=== PATIENT | female | born 1990 | race Caucasian/White ===

== ENCOUNTER 2017-09-27 11:40 | Emergency (ER) | payer MEDICAID, OTHER ==
[~2017-09-27] VITALS: Ht 170.2 cm; Wt 80.0 kg
[~2017-09-27 11:40] MED LIST: IBUP800 PO; PRENTAB72 PO
[2017-09-27 12:00] VITALS: BP_SYST 125; BP_SYST 13; BP_DIAS 63; PULSE 119; RESP 18; TEMP 98.7; O2SAT 99
[2017-09-27 13:09] LABS: AUTOMATED NEUTROPHIL # 10.9 TH/MM3 (1.8-7.7); BASOPHIL % 0.3 % (0.0-2.0); EOSINOPHIL # 0.3 TH/MM3 (0-0.4); EOSINOPHIL % 2.2 % (0.0-4.0); HEMATOCRIT 39.4 % (35.0-46.0); HEMOGLOBIN 13.1 GM/DL (11.6-15.3); LYMPH % 13.7 % (9.0-44.0); LYMPHOCYTE # 1.9 TH/MM3 (1.0-4.8); MEAN CELL VOLUME 79.6 FL (80.0-100.0); MEAN CORPUSCULAR HEMOGLOBIN 26.5 PG (27.0-34.0); MEAN CORPUSCULAR HGB CONC 33.3 % (32.0-36.0); MEAN PLATELET VOLUME 7.8 FL (7.0-11.0); MONO % 5.6 % (0.0-8.0); MONOCYTE # 0.8 TH/MM3 (0-0.9); NEUT % 78.2 % (16.0-70.0); PLATELET COUNT 256 TH/MM3 (150-450); RED BLOOD COUNT 4.95 MIL/MM3 (4.00-5.30); RED CELL DISTRIBUTION WIDTH 15.4 % (11.6-17.2); WHITE BLOOD COUNT 13.9 TH/MM3 (4.0-11.0)
[2017-09-27 13:19] LABS: INTERNATIONAL NORMALIZED RATIO 1.1 RATIO; PROTHROMBIN TIME - PATIENT 10.9 SEC (9.8-11.6)
[2017-09-27 13:32] LABS: ALBUMIN 3.8 GM/DL (3.4-5.0); ALT (GPT) 11 U/L (10-53); AST (GOT) 11 U/L (15-37); BICARBONATE 24.4 MEQ/L (21.0-32.0); BLOOD UREA NITROGEN 13 MG/DL (7-18); CALCIUM 9.4 MG/DL (8.5-10.1); CHLORIDE 104 MEQ/L (98-107); CREATININE 0.66 MG/DL (0.50-1.00); GLOMERULAR FILTRATION RATE 107 ML/MIN (>89); GLUCOSE,RANDOM 85 MG/DL (74-106); SODIUM (NA) 138 MEQ/L (136-145)
[2017-09-27 13:48] LABS: ALKALINE PHOSPHATASE 62 U/L (45-117); TOTAL BILIRUBIN ADULT 0.7 MG/DL (0.2-1.0); TOTAL PROTEIN 8.1 GM/DL (6.4-8.2)
--- NOTE | 2017-09-27 14:08 | PD ---
HPI Chief Complaint: Related Problem Time Seen by Provider: 14:00 Travel History International Travel<30 days: No Contact w/Intl Traveler<30days: No Traveled to known affect area: No History of Present Illness HPI 26-year-old female presumably 5-1/2 weeks , presents emergency department with sudden onset heavy vaginal bleeding and cramping. Patient states it started today around lunchtime. She states it went through her pants and 2 pads in the last 2 hours. She denies fever, chills, or other symptoms. She has no urinary symptoms. Cramping is about a 3 out of 10. She has no known drug allergies. PFSH Past Medical History Diminished Hearing: No ?: Social History Alcohol Use: Yes (OCC) Tobacco Use: Yes (1 PPD) Substance Use: No Allergies-Medications (Allergen,Severity, Reaction): Coded Allergies: No Known Allergies (Verified Adverse Reaction, Unknown, 09/27/17) Reported Meds & Prescriptions Reported Meds & Active Scripts Active Reported Motrin 800 Mg Tab (Ibuprofen) 800 Mg Tab 800 Mg PO Q8HPRN ( Vit W/ Ferrous Fumara) Tab 1 PO Review of Systems Except as stated in HPI: all other systems reviewed are Neg General / Constitutional: No: Fever Eyes: No: Visual changes HENT: No: Headaches Cardiovascular: No: Chest Pain or Discomfort Respiratory: No: Shortness of Breath Gastrointestinal: No: Abdominal Pain Genitourinary: No: Dysuria Musculoskeletal: No: Pain Skin: No Rash Neurologic: No: Weakness Psychiatric: No: Depression Endocrine: No: Polydipsia Hematologic/Lymphatic: No: Easy Bruising Physical Exam Narrative GENERAL: Patient appears anxious but otherwise in no acute distress. SKIN: Warm and dry. Normal color. Normal turgor. HEAD: Atraumatic. Normocephalic. EYES: Pupils equal and round. No scleral icterus. No injection or drainage. ENT: No nasal bleeding or discharge. Mucous membranes pink and moist. Pharynx is clear. Airways patent. NECK: Trachea midline. Supple and nontender. CARDIOVASCULAR: Regular rate and rhythm. RESPIRATORY: No accessory muscle use. Clear to auscultation. Breath sounds equal bilaterally. GASTROINTESTINAL: Abdomen soft, mild suprapubic tenderness with palpation, nondistended. Hepatic and splenic margins not palpable. MUSCULOSKELETAL: Extremities without clubbing, cyanosis, or edema. No obvious deformities. NEUROLOGICAL: Awake and alert. No obvious cranial nerve deficits. Motor grossly within normal limits. Five out of 5 muscle strength in the arms and legs. Normal speech. PSYCHIATRIC: Appropriate mood and affect; insight and judgment normal. Data Data Last Documented VS Vital Signs Date Time Temp Pulse Resp B/P (MAP) Pulse Ox O2 Delivery O2 Flow Rate FiO2 09/27/17 12:00 98.7 119 18 125/63 (83) 99 Orders Orders Complete Blood Count With Diff (09/27/17 12:31) Beta Hcg (Quant/Titer) (09/27/17 12:31) Comprehensive Metabolic Panel (09/27/17 12:31) Prothrombin Time / Inr (Pt) (09/27/17 12:31) Act Partial Throm Time (Ptt) (09/27/17 12:31) Type And Screen (09/27/17 12:31) Us Pelvis (Ques Pr/Ect)W Trans (09/27/17 14:02) Ibuprofen (Motrin) (09/27/17 15:15) Acetaminophen (Tylenol) (09/27/17 15:15) Alprazolam (Xanax) (09/27/17 15:15) Labs Laboratory Tests Test 09/27/17 12:43 White Blood Count 13.9 TH/MM3 Red Blood Count 4.95 MIL/MM3 Hemoglobin 13.1 GM/DL Hematocrit 39.4 % Mean Corpuscular Volume 79.6 FL Mean Corpuscular Hemoglobin 26.5 PG Mean Corpuscular Hemoglobin Concent 33.3 % Red Cell Distribution Width 15.4 % Platelet Count 256 TH/MM3 Mean Platelet Volume 7.8 FL Neutrophils (%) (Auto) 78.2 % Lymphocytes (%) (Auto) 13.7 % Monocytes (%) (Auto) 5.6 % Eosinophils (%) (Auto) 2.2 % Basophils (%) (Auto) 0.3 % Neutrophils # (Auto) 10.9 TH/MM3 Lymphocytes # (Auto) 1.9 TH/MM3 Monocytes # (Auto) 0.8 TH/MM3 Eosinophils # (Auto) 0.3 TH/MM3 Basophils # (Auto) 0.0 TH/MM3 CBC Comment DIFF FINAL Differential Comment Prothrombin Time 10.9 SEC Prothromb Time International Ratio 1.1 RATIO Activated Partial Thromboplast Time 26.6 SEC Blood Urea Nitrogen 13 MG/DL Creatinine 0.66 MG/DL Random Glucose 85 MG/DL Total Protein 8.1 GM/DL Albumin 3.8 GM/DL Calcium Level 9.4 MG/DL Alkaline Phosphatase 62 U/L Aspartate Amino Transf (AST/SGOT) 11 U/L Alanine Aminotransferase (ALT/SGPT) 11 U/L Total Bilirubin 0.7 MG/DL Sodium Level 138 MEQ/L Potassium Level 3.2 MEQ/L Chloride Level 104 MEQ/L Carbon Dioxide Level 24.4 MEQ/L Anion Gap 10 MEQ/L Estimat Glomerular Filtration Rate 107 ML/MIN Human Chorionic Gonadotropin, Quant 13103 MIU/ML [facility] Medical Decision Making Medical Screen Exam Complete: Yes Emergency Medical Condition: Yes Differential Diagnosis Vaginal bleeding. Needing an early . Threatened miscarriage. Narrative Course Patient appears medically stable at time of exam. Labs ordered in triage show CBC with slight leukocytosis of 13.9. Hemoglobin is 13.1. Hematocrit is 39.4. Coagulation studies are normal. Chemistries show potassium of 3.2, AST is 11, hCG is 20,162. B BKA shows a positive with negative gel antibody screen Pelvic ultrasound is ordered. Ultrasound showed: 1. Intrauterine gestational sac containing a pole measuring 5.6 mm corresponding to 6 weeks 2 days. No cardiac activity is demonstrated ( should be present with pole = 7mm). Considerations include early versus demise. 2. Probable small 1.3 cm fundal uterine leiomyoma. Patient is to rest at home, can take Tylenol and ibuprofen as needed for cramping Patient is to return in 2 days for repeat serum hCG. Patient can follow-up with her [facility] as she has one. If no [facility] recommend the patient follow-up with the [facility]. Patient can return sooner if bleeding or other symptoms worsen. Diagnosis Primary Impression: Spontaneous miscarriage Referrals: [facility] Patient Instructions: General Instructions, Miscarriage (ED) Departure Forms: Work Release Enter return to work date: Sep 30, 2017 Additional Instructions: Ultrasound showed: 1. Intrauterine gestational sac containing a pole measuring 5.6 mm corresponding to 6 weeks 2 days. No cardiac activity is demonstrated ( should be present with pole = 7mm). Considerations include early versus demise. 2. Probable small 1.3 cm fundal uterine leiomyoma. Patient is to rest at home, can take Tylenol and ibuprofen as needed for cramping Patient is to return in 2 days for repeat serum hCG. Patient can follow-up with her [facility] as she has one. If no [facility] recommend the patient follow-up with the women's center. Patient can return sooner if bleeding or other symptoms worsen. Med/Other Pt SpecificInfo: Prescription(s) given Disposition: 01 DISCHARGE HOME Condition: Stable Jt Pacheco Sep 27, 2017 14:08
[2017-09-27] MEDS ORDERED: ACETAMINOPHEN 325 MG TAB PO ONE (15:15)
[2017-09-27] MEDS ORDERED: IBUPROFEN 800 MG TAB PO ONE (15:15)
[2017-09-27] MEDS ORDERED: ALPRAZolam 0.5 MG TAB PO ONE (15:15)
--- NOTE | 2017-09-27 15:48 | RADRPT ---
EXAM DATE/TIME: 09/27/2017 14:39 [place] COMPARISON: No previous studies available for comparison. INDICATIONS : Pelvic pain and bleeding with . LAB(S): Beta-hC MEDICAL HISTORY : . Tobacco use. SURGICAL HISTORY : None. ENCOUNTER: Initial ACUITY: 1 day PAIN SCORE: 7/10 LOCATION: Bilateral pelvis MEASUREMENTS: UTERUS: 10.4 x 5.5 x 4.8 cm ENDOMETRIAL STRIPE: 7 mm RIGHT OVARY: 4.4 x 3.0 x 2.3 cm LEFT OVARY: 4.6 x 3.2 x 2.5 cm CROWN RUMP LENGTH: 5.6 mm = 6 WKS 2 DAYS FHR: Non visualized. BPM FINDINGS: UTERUS: There is a endometrial gestational sac measuring 1.8 cm corresponding to 5 weeks 6 days. There is a f etal pole measuring 5.6 mm corresponding to 6 weeks 2 days. No cardiac activity is demonstrated . There is a small hypoechoic myometrial mass in the fundus measuring 1.3 x 0.9 x 1.0 cm likely refle cting a fibroid. RIGHT OVARY: Ovary contains no mass or significant cystic lesion. LEFT OVARY: Ovary contains no mass or significant cystic lesion. 2.7 cm complex cyst likely reflecting a corpus luteal cyst. MISCELLANEOUS: No free fluid. CONCLUSION: 1. Intrauterine gestational sac containing a pole measuring 5.6 mm corresponding to 6 weeks 2 d ays. No cardiac activity is demonstrated (should be present with pole = 7mm). Considerati ons include early versus demise. 2. Probable small 1.3 cm fundal uterine leiomyoma. Aries Shankar MD on September 27, 2017 at 15:36 Board Certified Radiologist. This report was verified electronically.
[2017-09-27] MEDS ORDERED: IBUP-232 PO (17:03)
[2017-09-27] MEDS ORDERED: ZOFR4TAB PO (17:03)
== END 2017-09-27 17:17 | disposition home or self-care (01) ==
LOC: NEPD 11:40
DX: O03.9 Complete or unspecified spontaneous abortion without complication (principal); F17.210 Nicotine dependence, cigarettes, uncomplicated
CPT/HCPCS: 76700; 76817; 80053; 84702; 85025; 85610; 85730; 86850; 86900; 86901; 99284